=== PATIENT | female | born 1945 | race Caucasian/White ===

== ENCOUNTER 2018-06-06 13:57 | Inpatient (IN) | payer MEDICARE ==
[~2018-06-06] VITALS: Ht 157.5 cm; Wt 91.4 kg
[2018-06-06] MEDS ORDERED: IPRATROPIUM/ALBUTEROL SULFATE 3 ML SOLUTION IH ONE ×3 (14:52→19:30)
[2018-06-06 14:56] LABS: BASOPHILS % (AUTO) 0.6 % (0.0-5.0); EOSINOPHILS % (AUTO) 2.4 % (0.0-8.0); HEMATOCRIT 42.9 % (36-48); LYMPHOCYTES % (AUTO) 13.9 % (21.0-51.0); MEAN CORPUSCULAR HEMOGLOBIN 28.9 pg (27.0-33.0); MEAN CORPUSCULAR HGB CONC 31.7 g/dL (32.0-36.0); MEAN CORPUSCULAR VOLUME 91.3 fL (79-99); MONOCYTES % (AUTO) 7.6 % (3.0-13.0); NEUTROPHILS % (AUTO) 75.5 % (40.0-77.0); PLATELET COUNT (AUTO) 259 K/uL (130-400); RED CELL DISTRIBUTION WIDTH 15.3 % (11.0-15.5); WHITE BLOOD COUNT (AUTO) 10.2 K/uL (4.8-10.8)
[2018-06-06 15:01] LABS: ABG BASE EXCESS 7.3 mmol/L (-2.0-3.0); ABG HCO3 37.2 mmol/L (21.0-28.0); ABG OXYGEN SATURATION 88.4 % (95.0-99.0); ABG PCO2 79 mmHg (32-45)
[2018-06-06] MEDS ORDERED: SODIUM CHLORIDE 0.9% 500ML 500 ML IV ONE (15:06)
[2018-06-06] MEDS ORDERED: METHYLPREDNISOLONE SOD SUCC 125MG/2ML VIAL ONE (15:06)
[2018-06-06 15:10] LABS: INR 0.95 (0.85-1.15); PARTIAL THROMBOPLASTIN TIME 24.5 SEC (26.3-35.5)
[2018-06-06 15:25] LABS: POTASSIUM 5.4 mmol/L (3.5-5.1)
[2018-06-06 15:29] LABS: ALBUMIN 3.2 g/dL (3.5-5.0); BILIRUBIN,TOTAL 0.4 mg/dL (0.2-1.0); TOTAL PROTEIN, SERUM 6.8 g/dL (6.0-8.3)
[2018-06-06 15:30] LABS: CREATINE KINASE, TOTAL 53 U/L (21-232); MYOGLOBIN 42 ng/mL (10-92); TROPONIN I < 0.04 ng/mL (0.00-0.06)
[2018-06-06] MEDS ORDERED: LEVOFLOXACIN 750 MG/D5W 150 ML 150 ML ONE (16:58)
[2018-06-06] MEDS ORDERED: ACETAMINOPHEN 325 MG TAB PO PRN (17:15)
[2018-06-06] MEDS ORDERED: ONDANSETRON HCL 4 MG/2 ML VIAL IV PRN (17:15)
[2018-06-06] MEDS ORDERED: MORPHINE SULFATE 2 MG/ML 1ML SYG IV PRN (17:15)
[2018-06-06] MEDS ORDERED: SODIUM POLYSTYRENE SULFONATE 15 GM/60 ML ML PO STA (17:59)
[2018-06-06] MEDS: AZITHROMYCIN 500MG+NS 250ML 250 ML IV SCH (18:00)
[2018-06-06] MEDS ORDERED: SODIUM CHLORIDE 0.9% 1000ML 1,000 ML IV ONE (19:25)
[2018-06-06] MEDS ORDERED: SODIUM POLYSTYRENE SULFONATE 15 GM/60 ML ML ONE (19:25)
[2018-06-06] MEDS ORDERED: AZITHROMYCIN 500MG+NS 250ML 250 ML IV ONE (19:25)
[2018-06-06] MEDS ORDERED: CEFTRIAXONE SODIUM 1 GM ONE (19:26)
[2018-06-06] MEDS: IPRATROPIUM/ALBUTEROL SULFATE 3 ML SOLUTION IH SCH ×2 (19:31→22:18)
[2018-06-06] MEDS ORDERED: SODIUM CHLORIDE 3% FOR INHALATION 4 ML/AMP VIAL.NEB IH ONE (22:08)
[2018-06-07] MEDS ORDERED: METHYLPREDNISOLONE SOD SUCC 125MG/2ML VIAL ONE ×2 (00:10→09:05)
[2018-06-07] MEDS ORDERED: SODIUM CHLORIDE 3% FOR INHALATION 4 ML/AMP VIAL.NEB IH ONE ×2 (01:27→06:06)
[2018-06-07] MEDS: IPRATROPIUM/ALBUTEROL SULFATE 3 ML SOLUTION IH SCH ×6 (01:30→21:29)
[2018-06-07 05:49] LABS: APPEARANCE,URINE Clear (CLEAR); BILIRUBIN,URINE Negative (NEGATIVE); COLOR,URINE Yellow (YELLOW); GLUCOSE, URINE (UA) 250 mg/dL (NEGATIVE); KETONES,URINE Negative (NEGATIVE); LEUKOCYTE ESTERASE ,URINE Trace (NEGATIVE); NITRATE,URINE Positive (NEGATIVE); OCCULT BLOOD,URINE Negative (NEGATIVE); PROTEIN,URINE Trace (NEGATIVE)
[2018-06-07 06:01] LABS: RBC,URINE 0-1 /HPF (0-1)
[2018-06-07 06:06] LABS: BACTERIA,URINE Many /HPF (None Seen)
[2018-06-07] MEDS ORDERED: INSULIN HUMULIN R 100 UNIT/ML 3ML ONE ×2 (07:42→13:23)
[2018-06-07] MEDS: PANTOPRAZOLE SODIUM 40 MG TABLET.DR PO SCH (09:00)
[2018-06-07] MEDS: ENOXAPARIN SODIUM 40 MG/0.4 ML SYRINGE SQ SCH (09:00)
[2018-06-07] MEDS ORDERED: PANTOPRAZOLE SODIUM 40 MG TABLET.DR PO ONE (09:05)
[2018-06-07] MEDS ORDERED: ENOXAPARIN SODIUM 40 MG/0.4 ML SYRINGE SQ ONE (09:05)
[2018-06-07] MEDS: METHYLPREDNISOLONE SOD SUCC 125MG/2ML VIAL IV SCH ×2 (09:15→17:15)
[2018-06-07] MEDS: INSULIN HUMULIN R 100 UNIT/ML 3ML SQ SCH ×3 (11:30→22:33)
[2018-06-07] MEDS: SODIUM CHLORIDE 0.9% 1000ML 1,000 ML IV SCH (13:12)
[2018-06-07 15:20] VITALS: BP 151/60
[2018-06-07 16:23] LABS: BASOPHILS % (AUTO) 0.2 % (0.0-5.0); HEMATOCRIT 40.7 % (36-48); LYMPHOCYTES % (AUTO) 9.3 % (21.0-51.0); MEAN CORPUSCULAR HEMOGLOBIN 28.7 pg (27.0-33.0); MEAN CORPUSCULAR HGB CONC 31.5 g/dL (32.0-36.0); MEAN CORPUSCULAR VOLUME 90.9 fL (79-99); MONOCYTES % (AUTO) 11.7 % (3.0-13.0); NEUTROPHILS % (AUTO) 78.8 % (40.0-77.0); PLATELET COUNT (AUTO) 241 K/uL (130-400); RED BLOOD CELL COUNT(AUTO) 4.48 MIL/uL (4.00-5.50); RED CELL DISTRIBUTION WIDTH 15.4 % (11.0-15.5); WHITE BLOOD COUNT (AUTO) 9.5 K/uL (4.8-10.8)
[2018-06-07] MEDS ORDERED: METF-446 PO (16:37)
[2018-06-07] MEDS ORDERED: TIOT18CA3 IH (16:45)
[2018-06-07] MEDS ORDERED: INSLAN SQ (16:45)
[2018-06-07] MEDS ORDERED: CARV12.511 PO (16:45)
[2018-06-07] MEDS ORDERED: AEC81 PO (16:45)
[2018-06-07] MEDS ORDERED: GABA-531 PO (16:45)
[2018-06-07] MEDS ORDERED: SIMV80TA91 PO (16:45)
[2018-06-07] MEDS ORDERED: FLUT1DIS4 IH (16:45)
[2018-06-07] MEDS ORDERED: FERR-82 PO (16:45)
[2018-06-07] MEDS ORDERED: SERT50TA12 PO (16:45)
[2018-06-07] MEDS ORDERED: LISI1TAB11 PO (16:45)
[2018-06-07 16:47] LABS: CREATININE 1.4 mg/dL (0.5-1.5); POTASSIUM 4.2 mmol/L (3.5-5.1)
[2018-06-07] MEDS: LEVOFLOXACIN 500 MG/D5W 100 ML 100 ML IV SCH (17:17)
[2018-06-07] MEDS: AZITHROMYCIN 500MG+NS 250ML 250 ML IV SCH (18:09)
[2018-06-07 18:55] VITALS: BP 157/78
--- NOTE | 2018-06-07 19:11 | NUR ---
PT CARE RT made aware of order for continuous pulse oximetry order.
[2018-06-07 23:37] VITALS: BP 150/76
[2018-06-08] MEDS: METHYLPREDNISOLONE SOD SUCC 125MG/2ML VIAL IV SCH (01:15)
[2018-06-08] MEDS: IPRATROPIUM/ALBUTEROL SULFATE 3 ML SOLUTION IH SCH ×8 (01:34→23:43)
--- NOTE | 2018-06-08 01:45 | NUR ---
Patient refused Solumedrol. States the medication makes her too anxious.
[2018-06-08 04:49] VITALS: BP 148/68
[2018-06-08 05:20] LABS: BASOPHILS % (AUTO) 0.1 % (0.0-5.0); HEMATOCRIT 41.1 % (36-48); LYMPHOCYTES % (AUTO) 9.9 % (21.0-51.0); MEAN CORPUSCULAR HEMOGLOBIN 28.4 pg (27.0-33.0); MEAN CORPUSCULAR HGB CONC 31.4 g/dL (32.0-36.0); MEAN CORPUSCULAR VOLUME 90.5 fL (79-99); MONOCYTES % (AUTO) 7.3 % (3.0-13.0); NEUTROPHILS % (AUTO) 82.7 % (40.0-77.0); PLATELET COUNT (AUTO) 256 K/uL (130-400); RED BLOOD CELL COUNT(AUTO) 4.54 MIL/uL (4.00-5.50); RED CELL DISTRIBUTION WIDTH 14.8 % (11.0-15.5); WHITE BLOOD COUNT (AUTO) 8.7 K/uL (4.8-10.8)
[2018-06-08] MEDS: SODIUM CHLORIDE 0.9% 1000ML 1,000 ML IV SCH ×2 (05:26→17:12)
[2018-06-08 05:32] LABS: CREATININE 1.3 mg/dL (0.5-1.5); POTASSIUM 3.6 mmol/L (3.5-5.1)
--- NOTE | 2018-06-08 06:32 | NUR ---
O2 assessment: pt on home cpap w/4L O2 bled in. Addendum: 06/08/18 at 0634 by MADIHA FOX RT Amended: Links added.
[2018-06-08] MEDS: INSULIN HUMULIN R 100 UNIT/ML 3ML SQ SCH ×4 (06:41→21:57)
[2018-06-08 07:00] VITALS: BP 150/66
[2018-06-08] MEDS: PREDNISONE 20 MG TABLET PO SCH (09:50)
[2018-06-08] MEDS: PANTOPRAZOLE SODIUM 40 MG TABLET.DR PO SCH (09:50)
[2018-06-08] MEDS: ENOXAPARIN SODIUM 40 MG/0.4 ML SYRINGE SQ SCH (09:52)
[2018-06-08 11:00] VITALS: BP 167/68
[2018-06-08 16:00] VITALS: BP 123/89
--- NOTE | 2018-06-08 16:12 | NUR ---
destini note met with patient and states resides athome alone is yuan [place] from [place], [facility] has no services [place]. able to do own personal care and adls. does have a cpap at , and a walker, and a portable o2, that she radha uses prn. [facility] dc plan is back to home. currently resides at [facility] in [place]. [facility] no dc needs. Addendum: 06/08/18 at 1613 by LYNN HIGGINBOTHAM CM Amended: Links added.
[2018-06-08] MEDS: METFORMIN HCL 500 MG TABLET PO SCH (17:12)
[2018-06-08] MEDS: LEVOFLOXACIN 500 MG/D5W 100 ML 100 ML IV SCH (17:12)
[2018-06-08] MEDS: BUDESONIDE 0.5 MG/2 ML INH IH SCH (18:08)
[2018-06-08 19:21] VITALS: BP 175/96
[2018-06-08] MEDS ORDERED: CARVEDILOL 12.5 MG TABLET PO SCH (21:00)
[2018-06-08] MEDS: GABAPENTIN 300 MG CAPSULE PO SCH (21:08)
[2018-06-08] MEDS: HYDROCHLOROTHIAZIDE 25 MG TABLET PO SCH (21:08)
[2018-06-08] MEDS: LISINOPRIL 20 MG TABLET PO SCH (21:08)
[2018-06-08] MEDS: SIMVASTATIN 20 MG TABLET PO SCH (21:18)
[2018-06-08] MEDS: INSULIN GLARGINE 100 UNITS/ML 10 ML VIAL SQ SCH (21:56)
[2018-06-08 23:03] VITALS: BP 146/71
[2018-06-09] MEDS: IPRATROPIUM/ALBUTEROL SULFATE 3 ML SOLUTION IH SCH ×6 (02:00→23:07)
--- NOTE | 2018-06-09 02:16 | NUR ---
Patient alert and oriented. Using 3L of 02 via NC. Requested CPAP for bed. No current c/o of sob or chest pain. Patient lungs sounds without wheezes, diminished in bases. Resting in bed, Visitors at bedside.
[2018-06-09 03:17] VITALS: BP 161/75
[2018-06-09 03:41] LABS: HEMATOCRIT 39.6 % (36-48); MEAN CORPUSCULAR HEMOGLOBIN 28.8 pg (27.0-33.0); MEAN CORPUSCULAR HGB CONC 32.3 g/dL (32.0-36.0); MEAN CORPUSCULAR VOLUME 89.2 fL (79-99); NUCLEATED RED BLOOD CELLS 0.1 % (0.0-0.19); PLATELET COUNT (AUTO) 252 K/uL (130-400); RED BLOOD CELL COUNT(AUTO) 4.44 MIL/uL (4.00-5.50); RED CELL DISTRIBUTION WIDTH 15.1 % (11.0-15.5); WHITE BLOOD COUNT (AUTO) 8.1 K/uL (4.8-10.8)
[2018-06-09 03:45] LABS: ABG BASE EXCESS 8.8 mmol/L (-2.0-3.0); ABG HCO3 35.1 mmol/L (21.0-28.0); ABG OXYGEN SATURATION 91.8 % (95.0-99.0); ABG PCO2 54 mmHg (32-45)
[2018-06-09 04:08] LABS: CREATININE 1.3 mg/dL (0.5-1.5); MAGNESIUM 1.5 mg/dL (1.80-2.40); PHOSPHORUS 3.6 mg/dL (2.5-4.9); POTASSIUM 3.5 mmol/L (3.5-5.1)
[2018-06-09] MEDS: INSULIN HUMULIN R 100 UNIT/ML 3ML SQ SCH ×4 (05:35→22:36)
[2018-06-09] MEDS ORDERED: POTASSIUM CHLORIDE 20 MEQ ERTAB PO SCH (05:45)
--- NOTE | 2018-06-09 05:46 | NUR ---
Dr Cruz notified of patient's K+ and Mag levels. Verbal orders for electrolyte replacement
[2018-06-09] MEDS: BUDESONIDE 0.5 MG/2 ML INH IH SCH ×2 (06:00→18:37)
[2018-06-09] MEDS: MAGNESIUM 2GM PREMIX 50ML 50 ML IV SCH ×2 (06:41→13:41)
[2018-06-09] MEDS: SODIUM CHLORIDE 0.9% 1000ML 1,000 ML IV SCH (06:42)
[2018-06-09 07:47] VITALS: BP 157/61
[2018-06-09] MEDS ORDERED: SUB TO IPRATROPIUM 0.5MG/2.5ML PER P&T IH SCH (09:00)
[2018-06-09] MEDS: FERROUS SULFATE 325 MG TABLET.DR PO SCH (10:36)
[2018-06-09] MEDS: PREDNISONE 20 MG TABLET PO SCH (10:36)
[2018-06-09] MEDS: ASPIRIN 81 MG EC TAB PO SCH (10:36)
[2018-06-09] MEDS: PANTOPRAZOLE SODIUM 40 MG TABLET.DR PO SCH (10:36)
[2018-06-09] MEDS: MAGNESIUM OXIDE 400 MG TABLET PO SCH ×2 (10:37→22:39)
[2018-06-09] MEDS: SERTRALINE HCL 50 MG TABLET PO SCH (10:37)
[2018-06-09] MEDS: CARVEDILOL 12.5 MG TABLET PO SCH ×2 (10:37→22:38)
[2018-06-09] MEDS: METFORMIN HCL 500 MG TABLET PO SCH ×2 (10:37→16:19)
[2018-06-09] MEDS: HYDROCHLOROTHIAZIDE 25 MG TABLET PO SCH ×2 (10:38→22:37)
[2018-06-09] MEDS: LISINOPRIL 20 MG TABLET PO SCH ×2 (10:38→22:39)
[2018-06-09] MEDS: GABAPENTIN 300 MG CAPSULE PO SCH ×2 (10:38→22:39)
[2018-06-09] MEDS: ENOXAPARIN SODIUM 40 MG/0.4 ML SYRINGE SQ SCH (10:39)
[2018-06-09] MEDS: INSULIN GLARGINE 100 UNITS/ML 10 ML VIAL SQ SCH ×2 (10:49→22:34)
--- NOTE | 2018-06-09 13:00 | NUR ---
cm note per md will need home o2 at home. pt states already has a portable 02 concentrator she uses prn, but left her home concentrator at home in [facility] ph #[phone] provides o2 for her. pt uses cpap at . spoke to [facility] and [facility] pt s on service with them and they provide the portable o2 concentrator that works throughout the day , but she will need a home concentrator for nights so she can bleed o2 into the cpap that she has. he will initiate the pt as a traveler so that the [facility] now [facility] with [facility] can provide it to her while she is in [place]. requested we call him back tomorrow to verify status of delivery. pt address here in [place] is [address] [place] [address] [phone] [place] [phone].
[2018-06-09] MEDS: LEVOFLOXACIN 500 MG/D5W 100 ML 100 ML IV SCH (16:18)
[2018-06-09 16:59] VITALS: BP 146/81
[2018-06-09 19:00] VITALS: BP 155/69
[2018-06-09] MEDS: SIMVASTATIN 20 MG TABLET PO SCH (22:37)
[2018-06-09 23:00] VITALS: BP 142/60
[2018-06-10 03:00] VITALS: BP 135/51
[2018-06-10 03:52] LABS: HEMATOCRIT 38.3 % (36-48); MEAN CORPUSCULAR HEMOGLOBIN 28.2 pg (27.0-33.0); MEAN CORPUSCULAR HGB CONC 31.8 g/dL (32.0-36.0); MEAN CORPUSCULAR VOLUME 88.6 fL (79-99); PLATELET COUNT (AUTO) 240 K/uL (130-400); RED BLOOD CELL COUNT(AUTO) 4.32 MIL/uL (4.00-5.50); RED CELL DISTRIBUTION WIDTH 15.1 % (11.0-15.5); WHITE BLOOD COUNT (AUTO) 7.1 K/uL (4.8-10.8)
[2018-06-10 04:23] LABS: CREATININE 1.4 mg/dL (0.5-1.5); MAGNESIUM 2.2 mg/dL (1.80-2.40); PHOSPHORUS 3.4 mg/dL (2.5-4.9); POTASSIUM 3.8 mmol/L (3.5-5.1)
[2018-06-10] MEDS: IPRATROPIUM/ALBUTEROL SULFATE 3 ML SOLUTION IH SCH ×2 (06:01→11:15)
[2018-06-10] MEDS: BUDESONIDE 0.5 MG/2 ML INH IH SCH (06:15)
[2018-06-10] MEDS: METFORMIN HCL 500 MG TABLET PO SCH ×2 (07:14→16:58)
[2018-06-10] MEDS: INSULIN HUMULIN R 100 UNIT/ML 3ML SQ SCH ×3 (07:14→16:30)
[2018-06-10 07:55] VITALS: BP 149/63
[2018-06-10] MEDS: INSULIN GLARGINE 100 UNITS/ML 10 ML VIAL SQ SCH (09:00)
--- NOTE | 2018-06-10 10:00 | NUR ---
SITTING UP IN CHAIR AT BEDSIDE. AAOX3, RESP.'S EVEN AND UNLABORED. DENIES ANY SOB, DENIES ANY CURRENT PAIN. SMILES AND TALKATIVE. COMPLETE ASSESSMENT DONE. CALL LIGHT WITHIN REACH.
[2018-06-10] MEDS: MAGNESIUM OXIDE 400 MG TABLET PO SCH (10:12)
[2018-06-10] MEDS: GABAPENTIN 300 MG CAPSULE PO SCH (10:12)
[2018-06-10] MEDS: LISINOPRIL 20 MG TABLET PO SCH (10:12)
[2018-06-10] MEDS: PANTOPRAZOLE SODIUM 40 MG TABLET.DR PO SCH (10:12)
[2018-06-10] MEDS: PREDNISONE 20 MG TABLET PO SCH (10:12)
[2018-06-10] MEDS: ASPIRIN 81 MG EC TAB PO SCH (10:12)
[2018-06-10] MEDS: FERROUS SULFATE 325 MG TABLET.DR PO SCH (10:12)
[2018-06-10] MEDS: SERTRALINE HCL 50 MG TABLET PO SCH (10:13)
[2018-06-10] MEDS: HYDROCHLOROTHIAZIDE 25 MG TABLET PO SCH (10:13)
[2018-06-10] MEDS: CARVEDILOL 12.5 MG TABLET PO SCH (10:14)
[2018-06-10] MEDS: ENOXAPARIN SODIUM 40 MG/0.4 ML SYRINGE SQ SCH (10:16)
[2018-06-10 11:56] VITALS: BP 138/58
[2018-06-10] MEDS ORDERED: PRED20B PO (15:31)
[2018-06-10] MEDS ORDERED: MAGOX PO (15:31)
[2018-06-10] MEDS ORDERED: CARV12.580 PO (15:31)
[2018-06-10] MEDS ORDERED: LEVO500T2 PO (15:32)
--- NOTE | 2018-06-10 16:04 | NUR ---
WILLIS MCFADDEN VISITED WITH PATIENT. SPOKE TO [facility] IN [facility] HOME PATIENT. [facility] SENT INFO TO [facility] IN [place]. BUT PATIENT LIVES IN [place]. [facility] [employer] PATIENT PROVIDES EQUIPMENT FOR [facility] IN THIS AREA. FINALLY GOT ALL TAKEN CARE OFF. [facility] DELIVERED CONCENTRATOR TO HOME. PATIENT MADE ARRANGEMENTS WITH COMPANY TO HAVE DELIVERED. Addendum: 06/10/18 at 1606 by CYNDEE MENA RN CM Amended: Links added.
--- NOTE | 2018-06-10 16:30 | NUR ---
HL REMOVED, CATHETER INTACT. DISCHARGE INSTRUCTIONS GIVEN, PT. VERBALIZED UNDERSTANDING. PT.'S MALE FRIEND PRESENT AT BEDSIDE DURING INSTRUCTIONS.
--- NOTE | 2018-06-10 16:50 | NUR ---
DISCHARGED HOME VIA W/C WITH BELONGINGS INCLUDING HOME CPAP. ACCOMPANIED BY Suhail FLORES PCP.
[2018-06-10] MEDS: LEVOFLOXACIN 500 MG/D5W 100 ML 100 ML IV SCH (16:58)
[2018-06-10] MEDS ORDERED: INSULIN GLARGINE 100 UNITS/ML 10 ML VIAL SQ SCH (21:00)
== END 2018-06-10 17:09 | disposition home or self-care (01) | DRG 189 ==
LOC: EDH 13:57 → EDHIP 17:12 → 2AH 06-07 13:47
PROVIDERS: ADMIT Internal Medicine; ATTEND Internal Medicine
PROC: 5A09357 Assistance with Respiratory Ventilation, Less than 24 Consecutive Hours, Continuous Positive Airway Pressure (ICD-10-PCS; principal; 2018-06-07)
PROC: 5A09357 Assistance with Respiratory Ventilation, Less than 24 Consecutive Hours, Continuous Positive Airway Pressure (ICD-10-PCS; 2018-06-08)
PROC: 5A09357 Assistance with Respiratory Ventilation, Less than 24 Consecutive Hours, Continuous Positive Airway Pressure (ICD-10-PCS; 2018-06-10)
DX: J96.21 Acute and chronic respiratory failure with hypoxia (principal); J44.1 Chronic obstructive pulmonary disease with (acute) exacerbation; E87.2 Acidosis; J96.22 Acute and chronic respiratory failure with hypercapnia; E11.51 Type 2 diabetes mellitus with diabetic peripheral angiopathy without gangrene; I10 Essential (primary) hypertension; E78.5 Hyperlipidemia, unspecified; E87.5 Hyperkalemia; F41.9 Anxiety disorder, unspecified; G47.00 Insomnia, unspecified; Z87.891 Personal history of nicotine dependence; Z99.81 Dependence on supplemental oxygen
CPT/HCPCS: 36415; 36600; 71045; 80048; 80053; 81001; 82550; 82803; 82948; 83735; 83874; 83880; 84100; 84484; 85025; 85027; 85610; 85730; 87040; 87071; 87205; 94640; 94660; 94664; 94760; 97039; 99291; A4606; G0378; J0456; J0696; J1650; J1815; J1956; J2930; J3475; J7030; J7040

== ENCOUNTER 2019-03-17 13:18 | Emergency (ER) | payer MEDICARE ==
[~2019-03-17 13:18] MED LIST: AEC81 PO; CARV12.580 PO; FERR-82 PO; FLUT1DIS4 IH; GABA-531 PO; INSLAN SQ; LEVO500T2 PO; LISI1TAB28 PO; MAGOX PO; METF-446 PO; PRED20B PO; SERT50TA12 PO; SIMV80TA91 PO; TIOT18CA3 IH
[2019-03-17 13:50] LABS: BASOPHILS % (AUTO) 0.2 % (0.0-5.0); EOSINOPHILS % (AUTO) 1.2 % (0.0-8.0); HEMATOCRIT 34.7 % (36-48); LYMPHOCYTES % (AUTO) 11.3 % (21.0-51.0); MEAN CORPUSCULAR HEMOGLOBIN 26.6 pg (27.0-33.0); MEAN CORPUSCULAR HGB CONC 28.2 g/dL (32.0-36.0); NEUTROPHILS % (AUTO) 78.1 % (40.0-77.0); PLATELET COUNT (AUTO) 268 K/uL (130-400); RED BLOOD CELL COUNT(AUTO) 3.69 MIL/uL (4.00-5.50); RED CELL DISTRIBUTION WIDTH 13.9 % (11.0-15.5); WHITE BLOOD COUNT (AUTO) 8.2 K/uL (4.8-10.8)
[2019-03-17 13:56] LABS: CREATININE 1.6 mg/dL (0.5-1.5); POTASSIUM 4.2 mmol/L (3.5-5.1)
[2019-03-17 14:01] LABS: BILIRUBIN,TOTAL 0.4 mg/dL (0.2-1.0)
[2019-03-17 14:04] LABS: INR 1.12 (0.85-1.15); PARTIAL THROMBOPLASTIN TIME 28.9 SEC (26.3-35.5); PROTHROMBIN TIME 11.7 SEC (9.6-11.6)
[2019-03-17 15:40] LABS: B-TYPE NATRIURETIC PEPTIDE 160 pg/mL (0-100)
== END 2019-03-17 16:50 | disposition home or self-care (01) ==
LOC: EDH 13:18
DX: R60.0 Localized edema (principal); J44.9 Chronic obstructive pulmonary disease, unspecified; E11.9 Type 2 diabetes mellitus without complications; E78.5 Hyperlipidemia, unspecified; I10 Essential (primary) hypertension; Z90.710 Acquired absence of both cervix and uterus
CPT/HCPCS: 36415; 71045; 80053; 83880; 84484; 85025; 85610; 85730; 93005; 93970

== ENCOUNTER 2019-06-17 23:15 | Inpatient (IN) | payer MEDICARE ==
[~2019-06-17] VITALS: Ht 157.5 cm; Wt 74.8 kg
[~2019-06-17 23:15] MED LIST changes: +APIX5TAB PO; -CARV12.580 PO; +CARV25TA77 PO; +DOCU-116 PO; -FLUT1DIS4 IH; +LEVO250T59 PO; -LEVO500T2 PO; -LISI1TAB28 PO; -MAGOX PO; -METF-446 PO; -PRED20B PO; +ROSU40TA21 PO; -SERT50TA12 PO; -SIMV80TA91 PO; -TIOT18CA3 IH; +VENL37.587 PO
[2019-06-17] MEDS ORDERED: LEVOFLOXACIN 500 MG/D5W 100 ML 100 ML ONE (23:34)
[2019-06-17] MEDS ORDERED: IPRATROPIUM/ALBUTEROL SULFATE 3 ML SOLUTION IH ONE (23:35)
[2019-06-17 23:54] LABS: ABG BASE EXCESS 10.8 mmol/L (-2.0-3.0); ABG HCO3 39.5 mmol/L (21.0-28.0); ABG OXYGEN SATURATION 89.3 % (95.0-99.0); ABG PCO2 71 mmHg (32-45)
[2019-06-18 00:03] LABS: INR 1.03 (0.85-1.15); PARTIAL THROMBOPLASTIN TIME 28.5 SEC (26.3-35.5); PROTHROMBIN TIME 11.1 SEC (9.6-11.6)
[2019-06-18 00:09] LABS: B-TYPE NATRIURETIC PEPTIDE 361 pg/mL (0-100)
[2019-06-18 00:10] LABS: CREATININE 1.3 mg/dL (0.5-1.5); POTASSIUM 3.9 mmol/L (3.5-5.1)
[2019-06-18 00:12] LABS: BASOPHILS % (AUTO) 0.1 % (0.0-5.0); EOSINOPHILS % (AUTO) 0.2 % (0.0-8.0); HEMATOCRIT 32.3 % (36-48); LYMPHOCYTES % (AUTO) 9.3 % (21.0-51.0); MEAN CORPUSCULAR HEMOGLOBIN 27.1 pg (27.0-33.0); MEAN CORPUSCULAR HGB CONC 28.5 g/dL (32.0-36.0); NEUTROPHILS % (AUTO) 77.1 % (40.0-77.0); PLATELET COUNT (AUTO) 195 K/uL (130-400); RED CELL DISTRIBUTION WIDTH 15.9 % (11.0-15.5); WHITE BLOOD COUNT (AUTO) 10.8 K/uL (4.8-10.8)
[2019-06-18 00:16] LABS: ALBUMIN 2.8 g/dL (3.5-5.0); BILIRUBIN,TOTAL 0.7 mg/dL (0.2-1.0); TOTAL PROTEIN, SERUM 7.3 g/dL (6.0-8.3)
[2019-06-18] MEDS ORDERED: METHYLPREDNISOLONE SOD SUCC 125MG/2ML VIAL IVP SCH (02:15)
[2019-06-18] MEDS ORDERED: ACETAMINOPHEN 325 MG TAB PO PRN ×2 (02:30)
[2019-06-18] MEDS ORDERED: ONDANSETRON HCL 4 MG/2 ML VIAL IV PRN (02:30)
[2019-06-18] MEDS ORDERED: DEXTROSE 50%-WATER 50 ML DISP.SYRIN IV PRN (02:30)
[2019-06-18] MEDS ORDERED: GLUCAGON 1MG KIT 1 MG ML IM PRN (02:30)
[2019-06-18] MEDS ORDERED: NITROGLYCERIN 0.4 MG SL TAB SL PRN (02:30)
[2019-06-18 02:52] LABS: RAPID GROUP A STREP NEGATIVE (NEGATIVE)
[2019-06-18] MEDS ORDERED: HEPARIN SODIUM 5000UNIT/ML 1ML VIAL ONE ×2 (03:39→10:23)
[2019-06-18] MEDS ORDERED: METHYLPREDNISOLONE SOD SUCC 125MG/2ML VIAL ONE (03:40)
[2019-06-18] MEDS ORDERED: IPRATROPIUM/ALBUTEROL SULFATE 3 ML SOLUTION IH ONE ×3 (05:15→13:33)
[2019-06-18] MEDS ORDERED: MAGNESIUM 2GM PREMIX 50ML 50 ML IV SCH (05:15)
[2019-06-18] MEDS: IPRATROPIUM/ALBUTEROL SULFATE 3 ML SOLUTION IH SCH ×5 (05:18→22:01)
[2019-06-18] MEDS ORDERED: MAGNESIUM 2GM PREMIX 50ML 50 ML IV ONE (05:49)
[2019-06-18] MEDS ORDERED: HEPARIN SODIUM 5000UNIT/ML 1ML VIAL SQ SCH (06:00)
[2019-06-18 06:56] LABS: HEMATOCRIT 30.7 % (36-48); MEAN CORPUSCULAR HEMOGLOBIN 26.6 pg (27.0-33.0); PLATELET COUNT (AUTO) 187 K/uL (130-400); RED BLOOD CELL COUNT(AUTO) 3.23 MIL/uL (4.00-5.50); RED CELL DISTRIBUTION WIDTH 15.8 % (11.0-15.5); WHITE BLOOD COUNT (AUTO) 9.6 K/uL (4.8-10.8)
[2019-06-18 07:09] LABS: ALBUMIN 2.4 g/dL (3.5-5.0); BILIRUBIN,TOTAL 0.7 mg/dL (0.2-1.0); CREATININE 1.3 mg/dL (0.5-1.5); MAGNESIUM 1.9 mg/dL (1.80-2.40); POTASSIUM 4.3 mmol/L (3.5-5.1); TOTAL PROTEIN, SERUM 6.6 g/dL (6.0-8.3)
[2019-06-18 08:34] LABS: BAND NEUTROPHILS % (MANUAL) 1 % (0-2); EOSINOPHILS % (MANUAL) 2 % (1-6); LYMPHOCYTES % (MANUAL) 11 % (22-44); MAN.DIFF COMMENT-IMPRESSION MANUAL DIFFERENTIAL; MONOCYTES % (MANUAL) 12 % (2-9); PLATELET MORPHOLOGY COMMENT ADEQUATE; SEGMENTED NEUTROPHILS % 74 % (40-70)
[2019-06-18] MEDS ORDERED: FAMOTIDINE/PF 20 MG/2 ML VIAL IV ONE (09:01)
[2019-06-18] MEDS ORDERED: SODIUM CHLORIDE 3% FOR INHALATION 4 ML/AMP VIAL.NEB IH ONE (09:41)
[2019-06-18] MEDS ORDERED: METHYLPREDNISOLONE SOD SUCC 125MG/2ML VIAL IV SCH (10:00)
--- NOTE | 2019-06-18 12:49 | NUR ---
INITIAL SW met with patient. She stated that she is Casandra Leo from [place]. Patient lives alone. No home services. DME: O2 concentrator/portable, CPAP, BPM, walker with seat. O2 is thru [facility]. Patient is able to complete ADL's independently and drives. No local PCP. Pharmacy is [email or web address]. DCP is home. Local address: [address] [place] [id number] Addendum: 06/18/19 at 1251 by MARIAH SALDAÑA SS Amended: Links added.
[2019-06-18] MEDS ORDERED: DEXAMETHASONE SOD PHOSPHATE 4 MG/ML 1ML VIAL ONE ×2 (15:09→19:50)
[2019-06-18] MEDS ORDERED: HYDRALAZINE HCL 20 MG/ML VIAL IV PRN (15:30)
--- NOTE | 2019-06-18 19:44 | NUR ---
At this time decreased FIO2 to 3.5 L N/C due to her COPD will continue to monitor sats maintaining at 92% Im okay with SATS at 91% t0 92% due to CO2 levels increasing. Addendum: 06/18/19 at 1951 by GLORIA BURRELL RT Amended: Links added.
[2019-06-18] MEDS ORDERED: CARVEDILOL 25 MG TABLET PO ONE (19:49)
[2019-06-18] MEDS ORDERED: APIXABAN 2.5 MG TABLET PO ONE (19:49)
[2019-06-18] MEDS ORDERED: FAMOTIDINE 20MG TAB 20 MG TAB ONE (19:49)
[2019-06-18] MEDS ORDERED: LEVOFLOXACIN 500 MG/D5W 100 ML 100 ML IV SCH (21:00)
[2019-06-18] MEDS ORDERED: DEXAMETHASONE SOD PHOSPHATE 4 MG/ML 1ML VIAL IVP SCH (22:00)
[2019-06-18] MEDS ORDERED: DiphenhydrAMINE HCL 50 MG/ML VIAL ONE (22:54)
[2019-06-19] MEDS ORDERED: FURO20TA4 PO (00:47)
[2019-06-19] MEDS: IPRATROPIUM/ALBUTEROL SULFATE 3 ML SOLUTION IH SCH ×5 (02:11→22:26)
[2019-06-19 05:00] LABS: ABG BASE EXCESS 11.3 mmol/L (-2.0-3.0); ABG OXYGEN SATURATION 90.2 % (95.0-99.0); ABG PCO2 58 mmHg (32-45)
[2019-06-19 05:27] LABS: LYMPHOCYTES % (AUTO) 6.3 % (21.0-51.0); MEAN CORPUSCULAR HEMOGLOBIN 26.8 pg (27.0-33.0); MEAN CORPUSCULAR HGB CONC 28.9 g/dL (32.0-36.0); MEAN CORPUSCULAR VOLUME 92.7 fL (79-99); MONOCYTES % (AUTO) 8.3 % (3.0-13.0); NEUTROPHILS % (AUTO) 85.1 % (40.0-77.0); PLATELET COUNT (AUTO) 198 K/uL (130-400); RED BLOOD CELL COUNT(AUTO) 3.02 MIL/uL (4.00-5.50); RED CELL DISTRIBUTION WIDTH 15.7 % (11.0-15.5)
[2019-06-19 05:37] LABS: ALBUMIN 2.3 g/dL (3.5-5.0); CARBON DIOXIDE 39 mmol/L (21-32); CHLORIDE 97 mmol/L (101-111); CREATININE 1.3 mg/dL (0.5-1.5); GLOMERULAR FILTR. RATE CALC 43 mL/min (>60); PHOSPHORUS 3.1 mg/dL (2.5-4.9); POTASSIUM 4.3 mmol/L (3.5-5.1); SODIUM SERUM 139 mmol/L (136-145); UREA NITROGEN, BLOOD 21 mg/dL (7-18)
[2019-06-19 05:48] LABS: B-TYPE NATRIURETIC PEPTIDE 229 pg/mL (0-100)
[2019-06-19 05:59] LABS: GLUCOSE,RANDOM 218 mg/dL (70-105)
[2019-06-19 06:03] LABS: AMMONIA < 3 umol/L (11-32)
[2019-06-19] MEDS ORDERED: IPRATROPIUM/ALBUTEROL SULFATE 3 ML SOLUTION IH ONE ×3 (06:10→13:27)
[2019-06-19] MEDS ORDERED: SODIUM CHLORIDE 0.9% 1000ML 1,000 ML IV ONE (08:28)
[2019-06-19] MEDS ORDERED: DEXAMETHASONE SOD PHOSPHATE 4 MG/ML 1ML VIAL ONE (08:39)
[2019-06-19] MEDS ORDERED: CARVEDILOL 25 MG TABLET PO ONE (08:39)
[2019-06-19] MEDS ORDERED: ASPIRIN 81MG TAB.CHEW ONE (08:39)
[2019-06-19] MEDS ORDERED: FAMOTIDINE/PF 20 MG/2 ML VIAL IV ONE (08:40)
[2019-06-19] MEDS ORDERED: HYDRALAZINE HCL 20 MG/ML VIAL ONE (16:59)
[2019-06-19 19:15] VITALS: BP 157/67
[2019-06-19 19:34] VITALS: BP 157/58
[2019-06-19] MEDS: ATORVASTATIN CALCIUM 40 MG TABLET PO SCH (21:07)
[2019-06-19] MEDS: APIXABAN 5 MG TABLET PO SCH (21:08)
[2019-06-19] MEDS: LEVOFLOXACIN 250 MG/D5W 50ML 50 ML IVPB SCH (21:08)
[2019-06-19] MEDS: CARVEDILOL 25 MG TABLET PO SCH (21:10)
[2019-06-19] MEDS: INSULIN HUMULIN R 100 UNIT/ML 3ML SQ SCH (21:14)
[2019-06-19] MEDS: DiphenhydrAMINE HCL 50 MG/ML VIAL IV PRN (23:23)
[2019-06-19] MEDS: DEXAMETHASONE SOD PHOSPHATE 4 MG/ML 1ML VIAL IVP SCH (23:53)
[2019-06-20 00:02] VITALS: BP 144/49
[2019-06-20] MEDS: IPRATROPIUM/ALBUTEROL SULFATE 3 ML SOLUTION IH SCH ×6 (01:50→21:44)
[2019-06-20 03:52] VITALS: BP 167/70
[2019-06-20] MEDS: DiphenhydrAMINE HCL 50 MG/ML VIAL IV PRN ×4 (05:36→23:58)
[2019-06-20] MEDS: DEXAMETHASONE SOD PHOSPHATE 4 MG/ML 1ML VIAL IVP SCH ×4 (05:41→23:58)
[2019-06-20] MEDS: INSULIN HUMULIN R 100 UNIT/ML 3ML SQ SCH ×4 (06:37→21:10)
[2019-06-20] MEDS: ASPIRIN 81 MG EC TAB PO SCH ×2 (09:00→09:53)
[2019-06-20] MEDS: FAMOTIDINE/PF 20 MG/2 ML VIAL IV SCH ×2 (09:00→09:53)
[2019-06-20] MEDS: APIXABAN 5 MG TABLET PO SCH ×2 (09:54→21:09)
[2019-06-20] MEDS: CARVEDILOL 25 MG TABLET PO SCH ×2 (09:54→21:10)
--- NOTE | 2019-06-20 11:50 | NUR ---
PATIENT IS VERY ANXIOUS AT THIS TIME. SHE WANTS TO LEAVE THE HOSPITAL SO SHE CAN "GO HOME, TAKE A SHOWER, AND DO SOME ERRANDS". SHE DEMANDS TO SPEAK WITH "WHOEVER IS IN CHARGE" TO GET HER DEMANDS DONE. THERAPEUTIC COMMUNICATION UTILIZED. CONFERENCE CALL HELD WITH DAUGHTER MELLISA AND SON FELICITA. PATIENT VERBALIZED HOW SHE HAS NOT BEEN SEEN BY ANY DOCTOR SINCE ADMISSION IN ER AND THAT SHE WAS PLACED IN A STORAGE ROOM IN ER "WHILE THE STAFF PARTIED AND THE DOCTOR GOT DRUNK". SHE ALSO SAID THAT HER PROGRESSIVE ASSEMBLER AND FITTER LAST NIGHT ADMINISTERED MEDS THRU HER IV. PER DAUGHTER MELLISA, PATIENT HAS BEEN HAVING MOMENTS OF DISORIENTATION AND PARANOIA SINCE PT'S PASSED A YEAR AGO. FAMILY MEMBERS WERE ABLE TO CALM PATIENT DOWN. I MEDICATED HER WITH BENADRYL AND SCHEDULED DEXAMETHASONE. I INFORMED HER THAT DR. Cedeno WILL BE SEEING HER THIS AFTERNOON, REASSURED HER THAT PRIMARY NURSE ADMINISTERS THE APPROPRIATE MEDS, AND THAT STAFF WILL HELP HER SHOWER. SHE AGREED. SAFETY PRECAUTIONS OBSERVED. BED ALARM ON. CALL LIGHT WITHIN REACH AND INSTRUCTED PATIENT TO CALL FOR ASSISTANCE.
[2019-06-20 12:07] VITALS: BP 138/51
[2019-06-20 16:34] VITALS: BP 152/61
[2019-06-20] MEDS: FERROUS SULFATE 325 MG TABLET.DR PO SCH (17:00)
--- NOTE | 2019-06-20 17:40 | NUR ---
DR. Cedeno IS IN TO SEE PATIENT. CONFERENCE CALL WAS MADE WITH DAUGHTER MELLISA AND SON FELICITA WITH REGARDS TO DIAGNOSIS AND PLAN OF CARE. MD PLANS TO CONSULT PT FOR POSSIBLE REHAB PLACEMENT. FAMILY MEMBERS AGREE TO THIS. PATIENT IS ON O2 AT 3.5L WHICH IS HER BASELINE O2 USE AT HOME. INFORMED MD THAT PATIENT HAS PERIODS OF DISORIENTATION AND PARANOIA. WILL CONTINUE CURRENT TREATMENT.
[2019-06-20 19:50] VITALS: BP 159/58
[2019-06-20] MEDS: ATORVASTATIN CALCIUM 40 MG TABLET PO SCH (21:09)
[2019-06-20] MEDS: LEVOFLOXACIN 250 MG/D5W 50ML 50 ML IVPB SCH (21:09)
[2019-06-20 23:43] VITALS: BP 163/59
[2019-06-21] MEDS: IPRATROPIUM/ALBUTEROL SULFATE 3 ML SOLUTION IH SCH ×6 (01:14→21:45)
[2019-06-21 04:00] VITALS: BP 135/65
[2019-06-21 04:18] LABS: HEMATOCRIT 28.1 % (36-48); LYMPHOCYTES % (AUTO) 11.7 % (21.0-51.0); MEAN CORPUSCULAR HEMOGLOBIN 26.3 pg (27.0-33.0); MEAN CORPUSCULAR HGB CONC 28.8 g/dL (32.0-36.0); MEAN CORPUSCULAR VOLUME 91.2 fL (79-99); MONOCYTES % (AUTO) 8.8 % (3.0-13.0); NEUTROPHILS % (AUTO) 78.8 % (40.0-77.0); PLATELET COUNT (AUTO) 210 K/uL (130-400); RED BLOOD CELL COUNT(AUTO) 3.08 MIL/uL (4.00-5.50); RED CELL DISTRIBUTION WIDTH 15.9 % (11.0-15.5); WHITE BLOOD COUNT (AUTO) 4.1 K/uL (4.8-10.8)
[2019-06-21 04:46] LABS: ALBUMIN 2.3 g/dL (3.5-5.0); BILIRUBIN,TOTAL 0.3 mg/dL (0.2-1.0); CREATININE 1.5 mg/dL (0.5-1.5); POTASSIUM 4.2 mmol/L (3.5-5.1); TOTAL PROTEIN, SERUM 6.1 g/dL (6.0-8.3)
[2019-06-21] MEDS: DEXAMETHASONE SOD PHOSPHATE 4 MG/ML 1ML VIAL IVP SCH ×3 (06:32→17:12)
[2019-06-21] MEDS: INSULIN HUMULIN R 100 UNIT/ML 3ML SQ SCH ×4 (06:33→21:19)
[2019-06-21] MEDS: DiphenhydrAMINE HCL 50 MG/ML VIAL IV PRN ×3 (06:33→17:12)
[2019-06-21 07:00] VITALS: BP 148/72
[2019-06-21] MEDS: FAMOTIDINE/PF 20 MG/2 ML VIAL IV SCH (09:39)
[2019-06-21] MEDS: FERROUS SULFATE 325 MG TABLET.DR PO SCH ×3 (09:39→16:47)
[2019-06-21] MEDS: APIXABAN 5 MG TABLET PO SCH ×2 (09:39→21:15)
[2019-06-21] MEDS: ASPIRIN 81 MG EC TAB PO SCH (09:39)
[2019-06-21] MEDS: CARVEDILOL 25 MG TABLET PO SCH ×2 (09:40→21:13)
[2019-06-21 11:00] VITALS: BP 139/78
[2019-06-21] MEDS ORDERED: AMINOPHYLLINE 250MG/10 ML VIAL IV STA (11:57)
[2019-06-21] MEDS ORDERED: SODIUM CHLORIDE 0.9% IV SCH ×2 (12:00→14:15)
[2019-06-21] MEDS ORDERED: AMINOPHYLLINE IV SCH ×2 (12:00→14:15)
[2019-06-21] MEDS ORDERED: COMPOUND PO MISCELLANEOUS 1 EACH MISC MISC PRN (12:30)
[2019-06-21] MEDS: FUROSEMIDE 10 MG/ML 2ML VIAL IV SCH (12:35)
[2019-06-21] MEDS: MEROPENEM 1 GM VIAL IVP SCH (12:35)
[2019-06-21] MEDS: OSELTAMIVIR PHOSPHATE 300 MG, WATER FOR INJECTION,STERILE 10 ML, COMPOUNDING VEHICLE SF... PO SCH ×3 (13:43)
[2019-06-21] MEDS ORDERED: AMINOPHYLLINE 500 MG in SODIUM CHLORIDE 0.9% 100 ML IV SCH (14:30)
[2019-06-21 16:04] VITALS: BP 115/53
--- NOTE | 2019-06-21 18:50 | NUR ---
PATIENT HAS BEEN MORE CALM THIS AFTERNOON. SHE ADMITS THAT TAKING HER EFFEXOR HELPED A LOT WITH BETTER MOOD. DR. Cedeno AND DR. ROSS SAW PATIENT TODAY. PLAN OF CARE DISCUSSED. SHE WAS SEEN AND EVALUATED BY PHYSICAL THERAPY TODAY. AMINOPHYLLINE DRIP WAS STARTED ORDERED BY DR. ROSS. ABG AND CXR ORDERED FOR TOMORROW. PATIENT WILL BE KEPT IN PCCU STATUS PER DR. ROSS.
[2019-06-21] MEDS: BUDESONIDE 0.5 MG/2 ML INH IH SCH (18:53)
[2019-06-21 19:27] VITALS: BP 141/63
[2019-06-21] MEDS ORDERED: OSELTAMIVIR PHOSPHATE 75 MG CAP PO SCH (21:00)
[2019-06-21] MEDS: DOCUSATE SODIUM 100 MG CAP PO SCH (21:12)
[2019-06-21] MEDS: GABAPENTIN 300 MG CAPSULE PO SCH (21:14)
[2019-06-21] MEDS: DOXYCYCLINE HYCLATE 100 MG TABLET PO SCH (21:14)
[2019-06-21] MEDS: ATORVASTATIN CALCIUM 40 MG TABLET PO SCH (21:14)
[2019-06-21] MEDS: VENLAFAXINE HCL XR 37.5 MG CAP PO SCH (21:15)
[2019-06-22] VITALS (7 sets, daily range): BP systolic 129–167; BP diastolic 53–76
[2019-06-22] MEDS: DEXAMETHASONE SOD PHOSPHATE 4 MG/ML 1ML VIAL IVP SCH ×4 (00:13→17:32)
[2019-06-22] MEDS: FUROSEMIDE 10 MG/ML 2ML VIAL IV SCH ×2 (00:13→11:52)
[2019-06-22] MEDS: MEROPENEM 1 GM VIAL IVP SCH ×3 (00:13→20:49)
[2019-06-22] MEDS: DiphenhydrAMINE HCL 50 MG/ML VIAL IV PRN ×4 (00:13→17:34)
[2019-06-22] MEDS: IPRATROPIUM/ALBUTEROL SULFATE 3 ML SOLUTION IH SCH ×6 (01:12→22:19)
[2019-06-22 04:12] LABS: ABG HCO3 35.4 mmol/L (21.0-28.0); ABG OXYGEN SATURATION 85.4 % (95.0-99.0); ABG PCO2 45 mmHg (32-45)
[2019-06-22 04:39] LABS: HEMATOCRIT 30.7 % (36-48); LYMPHOCYTES % (AUTO) 9.3 % (21.0-51.0); MEAN CORPUSCULAR HEMOGLOBIN 26.3 pg (27.0-33.0); MEAN CORPUSCULAR VOLUME 90.8 fL (79-99); MONOCYTES % (AUTO) 8.5 % (3.0-13.0); NEUTROPHILS % (AUTO) 81.8 % (40.0-77.0); PLATELET COUNT (AUTO) 254 K/uL (130-400); RED BLOOD CELL COUNT(AUTO) 3.38 MIL/uL (4.00-5.50); RED CELL DISTRIBUTION WIDTH 15.4 % (11.0-15.5)
[2019-06-22 05:12] LABS: ALBUMIN 2.7 g/dL (3.5-5.0); BILIRUBIN,TOTAL 0.3 mg/dL (0.2-1.0); CREATININE 1.8 mg/dL (0.5-1.5); PHOSPHORUS 4.1 mg/dL (2.5-4.9); TOTAL PROTEIN, SERUM 6.5 g/dL (6.0-8.3)
[2019-06-22 05:25] LABS: THEOPHYLLINE 10.9 mcg/mL (10.0-20.0)
[2019-06-22] MEDS: BUDESONIDE 0.5 MG/2 ML INH IH SCH ×2 (05:38→19:29)
[2019-06-22] MEDS: INSULIN HUMULIN R 100 UNIT/ML 3ML SQ SCH ×4 (06:47→20:59)
[2019-06-22] MEDS: INSULIN GLARGINE 100 UNITS/ML 10 ML VIAL SQ SCH (06:48)
--- NOTE | 2019-06-22 08:00 | NUR ---
AM ASSESSMENT PT LAYING IN BED, HOB ELEVATED 30 DEGREES, WATCHING TV. A/O X 3. SOB ON EXERTION. NO DISTRESS NOTED. O2 NC @ 2L. DENIES CHEST PAIN OR DISCOMFORT. DENIES PALPITATIONS. TELE: SR. DENIES N/V AND/OR DIARRHEA. AMINOPHYLLINE GTT INFUSING @ 7.7 ML/HR. UP W/ASSISTANCE. INSTRUCTED TO CALL FOR ASSISTANCE. CALL KULWANT W/IN REACH.
[2019-06-22] MEDS: FERROUS SULFATE 325 MG TABLET.DR PO SCH (08:50)
[2019-06-22] MEDS: DOXYCYCLINE HYCLATE 100 MG TABLET PO SCH ×2 (08:50→20:47)
[2019-06-22] MEDS: VENLAFAXINE HCL XR 37.5 MG CAP PO SCH ×2 (08:50→20:49)
[2019-06-22] MEDS: GABAPENTIN 300 MG CAPSULE PO SCH ×2 (08:51→20:47)
[2019-06-22] MEDS: APIXABAN 5 MG TABLET PO SCH ×2 (08:51→20:49)
[2019-06-22] MEDS: ASPIRIN 81 MG EC TAB PO SCH (08:52)
[2019-06-22] MEDS: CARVEDILOL 25 MG TABLET PO SCH ×2 (08:52→20:48)
[2019-06-22] MEDS: FAMOTIDINE/PF 20 MG/2 ML VIAL IV SCH (08:52)
[2019-06-22] MEDS: OSELTAMIVIR PHOSPHATE 300 MG, WATER FOR INJECTION,STERILE 10 ML, COMPOUNDING VEHICLE SF... PO SCH ×3 (08:53)
[2019-06-22] MEDS ORDERED: FUROSEMIDE 20 MG TABLET PO SCH (09:00)
[2019-06-22] MEDS ORDERED: AMINOPHYLLINE 500 MG in SODIUM CHLORIDE 0.9% 100 ML IV SCH (09:15)
--- NOTE | 2019-06-22 19:00 | NUR ---
UPON ARRIVAL ONTO SHIFT PATIENT WAS HOSTILE, AGITATED, AND AGGRESSIVE WITH BATH MIX OPERATOR AND DAY SHIFT NURSE. PATIENT ON DROPLET PRECAUTIONS AND ATTEMPTING TO LEAVE HER ROOM WITHOUT HER O2. PATIENT USES 3.5L OF 02 AT HOME. PATIENT CONFUSED PLACE AND TIME. REORIENTED PATIENT TO TIME AND PLACE. PATIENT REMAINED CONFUSED AND SHOUTING FOR ANOTHER HOUR. PATIENT PLACED BACK ON 02 SEVERAL TIMES. NIGHT MEDS GIVEN AT 2029. PATIENT NO LONGER CONFUSED. WILL CONTINUE TO MONITOR.
[2019-06-22] MEDS: DOCUSATE SODIUM 100 MG CAP PO SCH (20:49)
[2019-06-22] MEDS: ATORVASTATIN CALCIUM 40 MG TABLET PO SCH (20:49)
[2019-06-23] MEDS: DEXAMETHASONE SOD PHOSPHATE 4 MG/ML 1ML VIAL IVP SCH
--- NOTE | 2019-06-23 00:45 | NUR ---
PATIENT WILLING TO TAKE LASIX REFUSED DEXAMETHASONE. STATES SHE IS ALLERGIC TO STEROIDS.
[2019-06-23] MEDS: FUROSEMIDE 10 MG/ML 2ML VIAL IV SCH ×3 (00:51→22:43)
[2019-06-23] MEDS: IPRATROPIUM/ALBUTEROL SULFATE 3 ML SOLUTION IH SCH ×2 (02:00→06:32)
--- NOTE | 2019-06-23 03:00 | NUR ---
PATIENT CONFUSED AGAIN. ATTEMPTED TO WALK TO ELEVATOR TO LEAVE HOME. STATES HER CAR IS OUTSIDE AND WILL BE DRIVING HOME. CONFUSED TO PLACE AND TIME. IMPULSIVE, ANGRY, AND IRRITABLE. PATIENT STATED NEB TREATMENTS HAVE STEROIDS AND SHE IS REFUSING TREATMENTS. PATIENT REFUSES TO KEEP BIPAP OR NASAL CANULA ON. SHOUTING AT STAFF. REORIENTED PATIENT SEVERAL TIMES.
[2019-06-23 03:49] VITALS: BP 133/57
[2019-06-23 04:28] LABS: BASOPHILS % (AUTO) 0.1 % (0.0-5.0); HEMATOCRIT 35.4 % (36-48); LYMPHOCYTES % (AUTO) 10.2 % (21.0-51.0); MEAN CORPUSCULAR HEMOGLOBIN 25.8 pg (27.0-33.0); MEAN CORPUSCULAR HGB CONC 28.8 g/dL (32.0-36.0); MEAN CORPUSCULAR VOLUME 89.4 fL (79-99); MONOCYTES % (AUTO) 10.7 % (3.0-13.0); NEUTROPHILS % (AUTO) 78.4 % (40.0-77.0); PLATELET COUNT (AUTO) 368 K/uL (130-400); RED BLOOD CELL COUNT(AUTO) 3.96 MIL/uL (4.00-5.50); RED CELL DISTRIBUTION WIDTH 15.1 % (11.0-15.5); WHITE BLOOD COUNT (AUTO) 8.9 K/uL (4.8-10.8)
[2019-06-23 04:48] LABS: ALBUMIN 3.3 g/dL (3.5-5.0); BILIRUBIN,TOTAL 0.5 mg/dL (0.2-1.0); CREATININE 2.2 mg/dL (0.5-1.5); POTASSIUM 4.2 mmol/L (3.5-5.1); TOTAL PROTEIN, SERUM 7.6 g/dL (6.0-8.3)
[2019-06-23] MEDS: INSULIN HUMULIN R 100 UNIT/ML 3ML SQ SCH ×4 (05:47→21:00)
[2019-06-23] MEDS: BUDESONIDE 0.5 MG/2 ML INH IH SCH ×2 (06:00→06:32)
--- NOTE | 2019-06-23 06:00 | NUR ---
Patient confused again. Not willing to leave NC on. [employer] paged. Per Cynthia MCKEON D/C dexamethasone and order abg.
[2019-06-23] MEDS: INSULIN GLARGINE 100 UNITS/ML 10 ML VIAL SQ SCH (06:27)
[2019-06-23 06:46] LABS: ABG BASE EXCESS 8.3 mmol/L (-2.0-3.0); ABG HCO3 33.3 mmol/L (21.0-28.0); ABG OXYGEN SATURATION 92.8 % (95.0-99.0); ABG PCO2 47 mmHg (32-45)
[2019-06-23 07:33] VITALS: BP 159/90
[2019-06-23] MEDS: FAMOTIDINE/PF 20 MG/2 ML VIAL IV SCH (09:41)
[2019-06-23] MEDS: MEROPENEM 1 GM VIAL IVP SCH ×2 (09:41→22:42)
[2019-06-23] MEDS: ASPIRIN 81 MG EC TAB PO SCH (09:41)
[2019-06-23] MEDS: APIXABAN 5 MG TABLET PO SCH ×2 (09:41→22:41)
[2019-06-23] MEDS: DOXYCYCLINE HYCLATE 100 MG TABLET PO SCH ×2 (09:42→22:41)
[2019-06-23] MEDS: VENLAFAXINE HCL XR 37.5 MG CAP PO SCH ×2 (09:42→22:41)
[2019-06-23] MEDS: GABAPENTIN 300 MG CAPSULE PO SCH ×2 (09:42→22:42)
[2019-06-23] MEDS: CARVEDILOL 25 MG TABLET PO SCH ×2 (09:42→22:42)
[2019-06-23] MEDS: FERROUS SULFATE 325 MG TABLET.DR PO SCH (09:42)
[2019-06-23] MEDS: OSELTAMIVIR PHOSPHATE 300 MG, WATER FOR INJECTION,STERILE 10 ML, COMPOUNDING VEHICLE SF... PO SCH ×3 (09:43)
[2019-06-23 11:40] VITALS: BP 133/60
[2019-06-23] MEDS ORDERED: LORAZEPAM 2 MG/ML 1 ML VIAL ONE (13:30)
[2019-06-23] MEDS ORDERED: LORAZEPAM 2 MG/ML 1 ML VIAL IVP ONE (14:45)
--- NOTE | 2019-06-23 17:00 | NUR ---
CALLED DR. CAMPA' OFFICE FOR NEW CONSULT. AWAITING 'S CALLBACK AT EXT 1302.
[2019-06-23] MEDS: METHYLPREDNISOLONE SOD SUCC 40MG/ML 1ML IVP SCH (17:24)
[2019-06-23] MEDS: DiphenhydrAMINE HCL 50 MG/ML VIAL IV PRN (17:25)
[2019-06-23] MEDS: IPRATROPIUM/ALBUTEROL SULFATE 3 ML SOLUTION IH PRN (19:03)
[2019-06-23 20:01] VITALS: BP 159/55
[2019-06-23] MEDS: ATORVASTATIN CALCIUM 40 MG TABLET PO SCH (22:41)
[2019-06-23] MEDS: DOCUSATE SODIUM 100 MG CAP PO SCH (22:42)
[2019-06-24 00:42] VITALS: BP 115/79
[2019-06-24 04:00] VITALS: BP 147/65
[2019-06-24] MEDS: INSULIN GLARGINE 100 UNITS/ML 10 ML VIAL SQ SCH (06:33)
[2019-06-24] MEDS: INSULIN HUMULIN R 100 UNIT/ML 3ML SQ SCH ×4 (06:34→21:05)
[2019-06-24] MEDS: MEROPENEM 1 GM VIAL IVP SCH ×2 (07:09→19:37)
[2019-06-24] MEDS: METHYLPREDNISOLONE SOD SUCC 40MG/ML 1ML IVP SCH (07:09)
[2019-06-24] MEDS: OSELTAMIVIR PHOSPHATE 300 MG, WATER FOR INJECTION,STERILE 10 ML, COMPOUNDING VEHICLE SF... PO SCH ×3 (07:09)
[2019-06-24] MEDS: FAMOTIDINE/PF 20 MG/2 ML VIAL IV SCH (07:09)
[2019-06-24] MEDS: GABAPENTIN 300 MG CAPSULE PO SCH ×2 (07:10→19:38)
[2019-06-24] MEDS: FERROUS SULFATE 325 MG TABLET.DR PO SCH (07:10)
[2019-06-24] MEDS: VENLAFAXINE HCL XR 37.5 MG CAP PO SCH (07:10)
[2019-06-24] MEDS: ASPIRIN 81 MG EC TAB PO SCH (07:10)
[2019-06-24] MEDS: DOXYCYCLINE HYCLATE 100 MG TABLET PO SCH ×2 (07:10→19:38)
[2019-06-24] MEDS: APIXABAN 5 MG TABLET PO SCH ×2 (07:10→19:38)
[2019-06-24] MEDS: CARVEDILOL 25 MG TABLET PO SCH ×2 (07:10→19:39)
[2019-06-24 07:18] VITALS: BP 159/61
[2019-06-24] MEDS: IPRATROPIUM/ALBUTEROL SULFATE 3 ML SOLUTION IH PRN ×2 (07:24→18:26)
--- NOTE | 2019-06-24 08:00 | NUR ---
ASSESSMENT PT IS AAOX3 DENIES CP DENIES SOB DENIES NV NO COMPLAINTS RESTING IN BED. BREATHING PATTERN IS EVEN AND UNLABORED. NO VISIBLE SIGNS OF DISTRESS NOTED, CALL LIGHT WITHIN REACH. 1:1 SITTER IS AT BEDSIDE.
[2019-06-24 08:23] LABS: HEMATOCRIT 33.1 % (36-48); LYMPHOCYTES % (AUTO) 12.8 % (21.0-51.0); MEAN CORPUSCULAR HGB CONC 28.4 g/dL (32.0-36.0); MEAN CORPUSCULAR VOLUME 91.7 fL (79-99); MONOCYTES % (AUTO) 11.7 % (3.0-13.0); NEUTROPHILS % (AUTO) 75.2 % (40.0-77.0); PLATELET COUNT (AUTO) 290 K/uL (130-400); RED BLOOD CELL COUNT(AUTO) 3.61 MIL/uL (4.00-5.50); WHITE BLOOD COUNT (AUTO) 6.5 K/uL (4.8-10.8)
[2019-06-24 08:56] LABS: ALBUMIN 2.6 g/dL (3.5-5.0); BILIRUBIN,TOTAL 0.3 mg/dL (0.2-1.0); CREATININE 1.8 mg/dL (0.5-1.5); TOTAL PROTEIN, SERUM 6.2 g/dL (6.0-8.3)
[2019-06-24] MEDS: FAMOTIDINE 20MG TAB 20 MG TAB PO SCH (08:58)
[2019-06-24] MEDS ORDERED: FAMOTIDINE 20MG TAB 20 MG TAB PO SCH (09:00)
[2019-06-24] MEDS: FUROSEMIDE 10 MG/ML 2ML VIAL IV SCH (11:27)
[2019-06-24 11:41] VITALS: BP 142/69
--- NOTE | 2019-06-24 15:17 | NUR ---
RD NOTIFICATION DIET: HEART HEALTHY/ 75GMCCD. PT HAS GOOD PO. NO COMPLAINTS OF N/V/C/D AT THIS TIME. SHE IS TOLERATING CURRENT DIET. LABS REVIEWED (BUN 41, CRE 1.8, GFR 29, BNP 229). MEDS REVIEWED. SKIN IS INTACT. RD RECOMMENDS TO ADD RENAL NON DIALYSIS TO DIET ORDER WILL CONTINUE TO MONITOR AND FOLLOW UP, THANK YOU. Addendum: 06/24/19 at [address] Amended: Links added.
--- NOTE | 2019-06-24 17:00 | NUR ---
DR TONY CURRY SAW PATIENT ORDERS RECEIVED. MAINTAIN 1:1 SITTER.
[2019-06-24 19:00] VITALS: BP 155/48
[2019-06-24] MEDS: DOCUSATE SODIUM 100 MG CAP PO SCH (19:37)
[2019-06-24] MEDS: ATORVASTATIN CALCIUM 40 MG TABLET PO SCH (19:38)
[2019-06-24] MEDS: RISPERIDONE 1 MG TABLET PO SCH (20:47)
[2019-06-24 23:00] VITALS: BP 138/54
[2019-06-25] MEDS: FUROSEMIDE 10 MG/ML 2ML VIAL IV SCH ×2 (01:40→12:05)
[2019-06-25 04:00] VITALS: BP 128/49
[2019-06-25] MEDS: IPRATROPIUM/ALBUTEROL SULFATE 3 ML SOLUTION IH PRN ×2 (06:15→18:57)
[2019-06-25] MEDS: INSULIN GLARGINE 100 UNITS/ML 10 ML VIAL SQ SCH (06:35)
[2019-06-25] MEDS: INSULIN HUMULIN R 100 UNIT/ML 3ML SQ SCH ×4 (06:35→22:31)
[2019-06-25 07:35] VITALS: BP_SYST 118; BP_SYST 132; BP_DIAS 52; BP_DIAS 71
[2019-06-25] MEDS: DOXYCYCLINE HYCLATE 100 MG TABLET PO SCH ×2 (07:56→21:25)
[2019-06-25] MEDS: APIXABAN 5 MG TABLET PO SCH ×2 (07:56→21:25)
[2019-06-25] MEDS: MEROPENEM 1 GM VIAL IVP SCH ×2 (07:56→21:19)
[2019-06-25] MEDS: SERTRALINE HCL 50 MG TABLET PO SCH (07:56)
[2019-06-25] MEDS: GABAPENTIN 300 MG CAPSULE PO SCH ×2 (07:56→21:25)
[2019-06-25] MEDS: FERROUS SULFATE 325 MG TABLET.DR PO SCH (07:56)
[2019-06-25] MEDS: ASPIRIN 81 MG EC TAB PO SCH (07:56)
[2019-06-25] MEDS: CARVEDILOL 25 MG TABLET PO SCH ×2 (07:57→21:25)
[2019-06-25] MEDS: METHYLPREDNISOLONE SOD SUCC 40MG/ML 1ML IVP SCH (07:57)
[2019-06-25] MEDS: FAMOTIDINE 20MG TAB 20 MG TAB PO SCH (07:57)
[2019-06-25] MEDS: OSELTAMIVIR PHOSPHATE 300 MG, WATER FOR INJECTION,STERILE 10 ML, COMPOUNDING VEHICLE SF... PO SCH ×3 (07:58)
[2019-06-25 08:30] LABS: EOSINOPHILS % (AUTO) 2.8 % (0.0-8.0); HEMATOCRIT 30.6 % (36-48); LYMPHOCYTES % (AUTO) 19.6 % (21.0-51.0); MEAN CORPUSCULAR HEMOGLOBIN 25.9 pg (27.0-33.0); MEAN CORPUSCULAR HGB CONC 28.8 g/dL (32.0-36.0); MONOCYTES % (AUTO) 12.7 % (3.0-13.0); NEUTROPHILS % (AUTO) 64.6 % (40.0-77.0); PLATELET COUNT (AUTO) 292 K/uL (130-400); RED CELL DISTRIBUTION WIDTH 15.3 % (11.0-15.5)
[2019-06-25 08:45] LABS: ALBUMIN 2.5 g/dL (3.5-5.0); BILIRUBIN,TOTAL 0.3 mg/dL (0.2-1.0); CREATININE 1.6 mg/dL (0.5-1.5); POTASSIUM 3.5 mmol/L (3.5-5.1); TOTAL PROTEIN, SERUM 5.7 g/dL (6.0-8.3)
--- NOTE | 2019-06-25 11:00 | NUR ---
STATUS UP TO CHAIR. NO COMPLAINTS, 1:1 SITTER DISCONTINUED. CALL LIGHT WITHIN REACH.
[2019-06-25 11:37] VITALS: BP 148/61
--- NOTE | 2019-06-25 15:15 | NUR ---
STATUS UP IN CHAIR, NO COMPLAINTS. CALL LIGHT WITHIN REACH.
[2019-06-25 15:36] VITALS: BP 137/50
--- NOTE | 2019-06-25 15:54 | NUR ---
DC PLAN VISITED WITH PATIENT. ORDER FOR SNF RECEIVED. SPOKE TO PATIENT REGARDING SNF. GAVE LIST AND CMS INFO. PATIENT NOT HAPPY WITH LIST, INFO, HOSPITAL STAY, DOCTORS. SAID THAT NO ONE IS TELLING HER ANYTHING. TRIED TO EXPLAIN MY ROLE CM FOR PLACEMENT. LEFT INFO FOR PATIENT TO REVIEW. CAME BACK PATIENT VERBALIZED FEELINGS OF DISPLEASURE TOLD HER I WILL LET PATIENT ADVOCATE KNOW GAVE ADVICE ON WRITING DOWN QUESTIONS FOR MD SINCE PATIENT FEELING IF THEY DON'T LISTEN SAID IT DID NOT MATTER. SENT MESSAGE FOR PATIENT ADVOCATE. T[place]HIA SIGNED FOR [facility]. INFO FAXED. LEFT MESSAGE WITH REP FOR FACILITY NO ANSWER. CM WILL CONTINUE TO FOLLOW. Addendum: 06/25/19 at 1559 by CYNDEE MENA RN CM Amended: Links added.
--- NOTE | 2019-06-25 16:19 | NUR ---
DC PLAN LET DIRECTOR KNOW OF PATIENT AND THEIR CONCERNS. SINCE PATIENT HAD BEEN ON A 1:1 THIS MORNING. RECOMMENDED CALLING FAMILY TO CONFIRM SNF AND LOCATION. SPOKE TO BROTHER MADELINE REEVES WHO IS THE PERSON TO NOTIFY SAID THAT WOULD BE GOOD. SINCE HE LIVES IN [place]. Addendum: 06/25/19 at 1622 by CYNDEE MENA RN Amended: Links added.
[2019-06-25 19:27] VITALS: BP 133/90
[2019-06-25] MEDS: RISPERIDONE 1 MG TABLET PO SCH (21:25)
[2019-06-25] MEDS: DOCUSATE SODIUM 100 MG CAP PO SCH (21:25)
[2019-06-25] MEDS: ATORVASTATIN CALCIUM 40 MG TABLET PO SCH (21:25)
[2019-06-25 23:56] VITALS: BP 142/68
[2019-06-26 04:08] VITALS: BP 113/46
[2019-06-26] MEDS: INSULIN HUMULIN R 100 UNIT/ML 3ML SQ SCH ×3 (06:56→17:03)
[2019-06-26] MEDS: INSULIN GLARGINE 100 UNITS/ML 10 ML VIAL SQ SCH (06:56)
[2019-06-26] MEDS: IPRATROPIUM/ALBUTEROL SULFATE 3 ML SOLUTION IH PRN ×2 (07:21→19:00)
--- NOTE | 2019-06-26 07:35 | NUR ---
BiPAP taken off and placed on 4L NC. Pt denies any sob; no respiratory distress noted.
[2019-06-26 07:38] VITALS: BP 118/53
[2019-06-26 08:05] LABS: EOSINOPHILS % (AUTO) 0.2 % (0.0-8.0); HEMATOCRIT 31.4 % (36-48); LYMPHOCYTES % (AUTO) 20.5 % (21.0-51.0); MEAN CORPUSCULAR HEMOGLOBIN 26.1 pg (27.0-33.0); MEAN CORPUSCULAR HGB CONC 28.7 g/dL (32.0-36.0); MONOCYTES % (AUTO) 10.6 % (3.0-13.0); NEUTROPHILS % (AUTO) 68.5 % (40.0-77.0); PLATELET COUNT (AUTO) 305 K/uL (130-400); RED BLOOD CELL COUNT(AUTO) 3.45 MIL/uL (4.00-5.50); RED CELL DISTRIBUTION WIDTH 15.4 % (11.0-15.5); WHITE BLOOD COUNT (AUTO) 8.3 K/uL (4.8-10.8)
[2019-06-26 08:24] LABS: ALBUMIN 2.4 g/dL (3.5-5.0); BILIRUBIN,TOTAL 0.3 mg/dL (0.2-1.0); CREATININE 1.4 mg/dL (0.5-1.5); POTASSIUM 3.5 mmol/L (3.5-5.1); TOTAL PROTEIN, SERUM 5.6 g/dL (6.0-8.3)
[2019-06-26] MEDS: FAMOTIDINE 20MG TAB 20 MG TAB PO SCH (09:00)
[2019-06-26] MEDS: FERROUS SULFATE 325 MG TABLET.DR PO SCH (09:17)
[2019-06-26] MEDS: MEROPENEM 1 GM VIAL IVP SCH (09:17)
[2019-06-26] MEDS: GABAPENTIN 300 MG CAPSULE PO SCH (09:17)
[2019-06-26] MEDS: SERTRALINE HCL 50 MG TABLET PO SCH (09:17)
[2019-06-26] MEDS: DOXYCYCLINE HYCLATE 100 MG TABLET PO SCH (09:17)
[2019-06-26] MEDS: APIXABAN 5 MG TABLET PO SCH (09:18)
[2019-06-26] MEDS: ASPIRIN 81 MG EC TAB PO SCH (09:18)
[2019-06-26] MEDS: CARVEDILOL 25 MG TABLET PO SCH (09:18)
[2019-06-26] MEDS: DiphenhydrAMINE HCL 50 MG/ML VIAL IV PRN (09:37)
[2019-06-26] MEDS: METHYLPREDNISOLONE SOD SUCC 40MG/ML 1ML IVP SCH (09:37)
[2019-06-26 11:36] VITALS: BP 133/57
[2019-06-26] MEDS: FUROSEMIDE 10 MG/ML 2ML VIAL IV SCH ×2 (12:31)
--- NOTE | 2019-06-26 15:07 | NUR ---
WILLIS SINGH VISITED WITH PATIENT. PENDING ACCEPTANCE. SINCE PATIENT GOING TO [facility] THEY WILL NOT BE ABLE TO PROVIDE A RIDE UNTIL TOMORROW. LET DIRECTOR KNOW. TRIED TO SEE IF THERE WAS A SISTER FACILITY LOCALLY THAT COULD DO A RIDE. SAID NO. DIRECTOR SAID OKAY FOR EMS. Addendum: 06/26/19 at 1522 by CYNDEE MENA RN CM Amended: Links added.
[2019-06-26 15:50] VITALS: BP 157/6
--- NOTE | 2019-06-26 17:00 | NUR ---
CASE MANAGEMENT CYNDEE MENA FINISHED GOODS PLANNER INFORMED ME THAT THE [facility] [place] WILL BE CALLING ME ONCE THE PATIENTS DAUGHTER HAS SIGNED PAPERWORK FOR TRANSFER TO SNF.
[2019-06-26] MEDS ORDERED: DOXY100T2 PO (17:02)
[2019-06-26] MEDS ORDERED: PRED20TA3 PO (17:02)
[2019-06-26 19:46] VITALS: BP 148/68
--- NOTE | 2019-06-26 21:29 | NUR ---
[facility] CALL PLACED TO ARRANGE TRANSPORTATION TO [facility]
--- NOTE | 2019-06-26 22:40 | NUR ---
Patient sent to [facility] via [facility]. All items sent with patient. No s/s of distress. Patient denies pain or sob. IV removed. Transfer packet and discharge sent with patient
== END 2019-06-26 22:40 | DRG 193 ==
LOC: EDH 23:15 → EDHIP 06-18 01:50 → 2DH 06-19 18:20 → UNDODISIN 06-26 21:05
PROVIDERS: ADMIT Internal Medicine; ATTEND Internal Medicine
PROC: 5A09357 Assistance with Respiratory Ventilation, Less than 24 Consecutive Hours, Continuous Positive Airway Pressure (ICD-10-PCS; principal; 2019-06-20)
PROC: 5A09357 Assistance with Respiratory Ventilation, Less than 24 Consecutive Hours, Continuous Positive Airway Pressure (ICD-10-PCS; 2019-06-21)
PROC: 5A09357 Assistance with Respiratory Ventilation, Less than 24 Consecutive Hours, Continuous Positive Airway Pressure (ICD-10-PCS; 2019-06-22)
PROC: 5A09357 Assistance with Respiratory Ventilation, Less than 24 Consecutive Hours, Continuous Positive Airway Pressure (ICD-10-PCS; 2019-06-23)
PROC: 5A09357 Assistance with Respiratory Ventilation, Less than 24 Consecutive Hours, Continuous Positive Airway Pressure (ICD-10-PCS; 2019-06-24)
PROC: 5A09357 Assistance with Respiratory Ventilation, Less than 24 Consecutive Hours, Continuous Positive Airway Pressure (ICD-10-PCS; 2019-06-26)
DX: J18.1 Lobar pneumonia, unspecified organism (principal); J96.21 Acute and chronic respiratory failure with hypoxia; E43 Unspecified severe protein-calorie malnutrition; J96.22 Acute and chronic respiratory failure with hypercapnia; J44.1 Chronic obstructive pulmonary disease with (acute) exacerbation; I31.3 Pericardial effusion (noninflammatory); J44.0 Chronic obstructive pulmonary disease with (acute) lower respiratory infection; N17.9 Acute kidney failure, unspecified; I49.1 Atrial premature depolarization; D64.9 Anemia, unspecified; N18.3 Chronic kidney disease, stage 3 (moderate); E11.22 Type 2 diabetes mellitus with diabetic chronic kidney disease; I12.9 Hypertensive chronic kidney disease with stage 1 through stage 4 chronic kidney disease, or unspecified chronic kidney disease; F17.210 Nicotine dependence, cigarettes, uncomplicated; Z88.1 Allergy status to other antibiotic agents; Z88.0 Allergy status to penicillin; Z88.2 Allergy status to sulfonamides; Z88.8 Allergy status to other drugs, medicaments and biological substances; Z68.30 Body mass index [BMI] 30.0-30.9, adult; D63.8 Anemia in other chronic diseases classified elsewhere; F41.9 Anxiety disorder, unspecified; F32.9 Major depressive disorder, single episode, unspecified; E78.5 Hyperlipidemia, unspecified; E66.9 Obesity, unspecified; E87.6 Hypokalemia; G47.33 Obstructive sleep apnea (adult) (pediatric); E83.42 Hypomagnesemia; E11.51 Type 2 diabetes mellitus with diabetic peripheral angiopathy without gangrene; Z79.899 Other long term (current) drug therapy; Z99.81 Dependence on supplemental oxygen; Z79.01 Long term (current) use of anticoagulants; Z90.710 Acquired absence of both cervix and uterus; Z87.440 Personal history of urinary (tract) infections; Z83.6 Family history of other diseases of the respiratory system; Z82.49 Family history of ischemic heart disease and other diseases of the circulatory system; Z71.6 Tobacco abuse counseling
CPT/HCPCS: 36415; 36600; 71045; 71250; 80048; 80053; 80198; 82040; 82140; 82550; 82728; 82803; 82948; 83036; 83540; 83550; 83605; 83735; 83880; 84100; 84145; 84484; 85025; 85610; 85730; 87040; 87071; 87205; 87804; 87880; 93005; 93970; 94640; 94660; 94664; 94667; 94668; 97039; 99291; G0378; J0280; J0360; J1100; J1200; J1644; J1815; J1940; J1956; J2060; J2185; J2920; J2930; J3475; J3490; J7030